=== PATIENT | male | born 1985 | race Caucasian/White ===

== ENCOUNTER 2018-05-13 19:24 | Emergency (ER) | payer OTHER ==
[~2018-05-13] VITALS: Ht 177.8 cm; Wt 127.3 kg
[2018-05-13] MEDS ORDERED: MOTR200T PO (19:32)
[2018-05-13] MEDS ORDERED: KETO10TAB PO (20:42)
[2018-05-13] MEDS ORDERED: KETOROLAC TROMETHAMINE 10 MG TAB PO ONE (20:45)
[2018-05-13 21:09] VITALS: BP 130/72
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
== END 2018-05-13 21:11 | disposition home or self-care (01) ==
LOC: M ED 19:24
DX: S83.92XA Sprain of unspecified site of left knee, initial encounter (principal); X50.1XXA Overexertion from prolonged static or awkward postures, initial encounter; Y92.149 Unspecified place in prison as the place of occurrence of the external cause; Y93.89 Activity, other specified; Y99.0 Civilian activity done for income or pay; Z72.0 Tobacco use

== ENCOUNTER 2018-06-25 19:43 | Emergency (ER) | payer OTHER ==
[~2018-06-25] VITALS: Ht 177.8 cm; Wt 124.5 kg
[~2018-06-25 19:43] MED LIST: KETO10TAB PO; MOTR200T PO
[2018-06-25] MEDS ORDERED: IBUPROFEN 600 MG TAB PO ONE (20:15)
[2018-06-25 21:10] VITALS: BP 138/75
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
== END 2018-06-25 21:14 | disposition home or self-care (01) ==
LOC: M ED 19:43
DX: S80.01XA Contusion of right knee, initial encounter (principal); S40.012A Contusion of left shoulder, initial encounter; S43.402A Unspecified sprain of left shoulder joint, initial encounter; W22.8XXA Striking against or struck by other objects, initial encounter; Y92.148 Other place in prison as the place of occurrence of the external cause; Y99.0 Civilian activity done for income or pay

== ENCOUNTER 2019-05-14 13:34 | Day surgery (SDC) | payer OTHER ==
[~2019-05-14] VITALS: Ht 177.8 cm; Wt 129.3 kg
[~2019-05-14 13:34] MED LIST changes: +LIDOCAINE 1% MDV 20ML VIAL SQ PRN; +LR 1,000 ML IV ONE; +ceFAZolin SOD 2 GM in IV 1 EA IV ONE
[2019-05-14] MEDS ORDERED: ROPIvacaine 0.5% 30 ML INJECTION (J2795 PER 1MG) ONE (13:35)
[2019-05-14] MEDS ORDERED: fentaNYL 100 MCG/2 ML INJECTION (J3010) As Ordered ONE (15:55)
[2019-05-14] MEDS ORDERED: MIDAZOLAM INJ 2 MG/2 ML VIAL (J2250) As Ordered ONE (15:55)
[2019-05-14] MEDS: MIDAZOLAM INJ 2 MG/2 ML VIAL (J2250) IV SCH ×3 (16:25→18:26)
[2019-05-14] MEDS ORDERED: ROCURONIUM BROMIDE 50 MG/5 ML VIAL As Ordered ONE (16:26)
[2019-05-14] MEDS ORDERED: PROPOFOL 200 MG/20 ML VIAL As Ordered ONE (16:27)
[2019-05-14] MEDS ORDERED: fentaNYL 250 MCG/5 ML INJECTION (J3010) As Ordered ONE (16:28)
[2019-05-14] MEDS ORDERED: dexameTHASONE 4 MG/ML 1ML VIAL (J1100) As Ordered ONE (16:29)
[2019-05-14] MEDS ORDERED: ONDANSETRON 4MG/2ML VIAL (J2405) As Ordered ONE (16:29)
[2019-05-14] MEDS ORDERED: EPINEPHrine 1MG/ML INJ 30ML MD-VIAL As Ordered ONE (16:32)
[2019-05-14] MEDS ORDERED: fentaNYL 100 MCG/2 ML INJECTION (J3010) IV SCH (17:15)
[2019-05-14] MEDS ORDERED: SUGAMMADEX SODIUM 500 MG/5 ML VIAL (BRIDION) As Ordered ONE (18:09)
[2019-05-14] MEDS ORDERED: fentaNYL 100 MCG/2 ML INJECTION (J3010) IV PRN (19:00)
[2019-05-14] MEDS ORDERED: LR 1,000 ML IV SCH (19:00)
[2019-05-14] MEDS ORDERED: ONDANSETRON 4MG/2ML VIAL (J2405) IV PRN (19:00)
[2019-05-14] MEDS ORDERED: oxyCODONE 5MG TAB PO PRN ×2 (19:00)
[2019-05-14 20:30] VITALS: BP 128/66
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
== END 2019-05-14 20:40 | disposition home or self-care (01) ==
LOC: M SDC 13:34
PROVIDERS: ATTEND Orthopaedic Surgery Hand Surgery
DX: M75.42 Impingement syndrome of left shoulder (principal)
CPT/HCPCS: 29806; 29824; 29826; 64415; J0690; J1100; J2250; J2405; J2795; J3010

== ENCOUNTER → 2020-10-19 | Outpatient (CLI) | payer OTHER ==
[~2020-10-19] MED LIST changes: -LIDOCAINE 1% MDV 20ML VIAL SQ PRN; -LR 1,000 ML IV ONE; -ceFAZolin SOD 2 GM in IV 1 EA IV ONE
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
== END ==
LOC: M RAD 17:37
PROVIDERS: ATTEND Orthopaedic Surgery
DX: M25.462 Effusion, left knee (principal); M71.22 Synovial cyst of popliteal space [Baker], left knee; S83.272A Complex tear of lateral meniscus, current injury, left knee, initial encounter; M94.262 Chondromalacia, left knee

== ENCOUNTER → 2021-11-29 | Outpatient (REF) | payer OTHER ==
[2021-12-01 21:10] LABS: TESTOSTERONE FREE (DIRECT) 10.9 pg/mL (8.7-25.1)
== END ==
LOC: M LAB REF 16:16
PROVIDERS: ATTEND Physician Assistant Medical
DX: R68.82 Decreased libido (principal)

== ENCOUNTER → 2022-04-23 | Outpatient (REF) | payer BC, OTHER ==
[2022-04-23 15:26] LABS: MONO SCRN NEGATIVE (NEGATIVE)
== END ==
LOC: M LAB REF 13:37
PROVIDERS: ATTEND Physician Assistant Medical
DX: R53.83 Other fatigue (principal); R63.4 Abnormal weight loss

== ENCOUNTER → 2022-04-23 | Outpatient (CLI) | payer BC, OTHER | LOC: M RAD 12:05 | PROVIDERS: ATTEND Physician Assistant Medical | DX: R05.9 Cough, unspecified (principal) ==

== ENCOUNTER → 2022-05-14 | Outpatient (CLI) | payer BC, OTHER ==
[~2022-05-14] MED LIST changes: +ISOVUE-370 76% 100ML VIAL As Ordered ONE
== END ==
LOC: M RAD 15:31
PROVIDERS: ATTEND Physician Assistant Medical
DX: R91.8 Other nonspecific abnormal finding of lung field (principal)

== ENCOUNTER → 2022-06-05 | Outpatient (CLI) | payer BC, OTHER ==
[~2022-06-05] MED LIST changes: -ISOVUE-370 76% 100ML VIAL As Ordered ONE
== END ==
LOC: M PLARAD 07:59
PROVIDERS: ATTEND Physician Assistant Medical
DX: R91.8 Other nonspecific abnormal finding of lung field (principal)
CPT/HCPCS: 78815; A9552

== ENCOUNTER → 2022-07-09 | Outpatient (CLI) | payer BC, OTHER ==
[~2022-07-09] MED LIST changes: +LIDOCAINE 1% MDV 20ML VIAL As Ordered ONE
[2022-07-09 14:05] VITALS: BP 167/89
== END ==
LOC: M IRPRO 13:05
PROVIDERS: ATTEND Nurse Practitioner Family
DX: R59.1 Generalized enlarged lymph nodes (principal); J98.59 Other diseases of mediastinum, not elsewhere classified

== ENCOUNTER → 2022-10-30 | Outpatient (CLI) | payer BC, OTHER ==
[~2022-10-30] MED LIST changes: +ACYC1TAB; +ALLO300T2; +CIPR500T39; +CLAR1TAB13 PO; +CYCL-707; +LEXA1TAB; +LEXA1TAB2; -LIDOCAINE 1% MDV 20ML VIAL As Ordered ONE; +METR-265; +ONDA-84; +PROC10TA5; +SENN-186 PO
[2022-10-30 14:54] LABS: INR 0.94; PROTHROMBIN TIME 12.8 SECONDS (12.5-14.5)
== END ==
LOC: M LAB 13:55
PROVIDERS: ATTEND Internal Medicine Hematology & Oncology
DX: C81.90 Hodgkin lymphoma, unspecified, unspecified site (principal)

== ENCOUNTER → 2022-11-18 | Outpatient (CLI) | payer BC, OTHER ==
[~2022-11-18] VITALS: Ht 175.3 cm; Wt 94.0 kg
[~2022-11-18] MED LIST changes: +HYDROMORPHONE HCL 0.5 MG/ 0.5 ML SYRINGE IV PRN; +LIDOCAINE 1% MDV 20ML VIAL As Ordered ONE; +LIDOCAINE 2% 100MG/5ML SDV (FOR ANES.) As Ordered ONE; +LR 1,000 ML IV SCH; +MIDAZOLAM INJ 2MG/2ML VIAL As Ordered ONE; +ONDANSETRON 4MG 2ML VIAL As Ordered ONE; +ONDANSETRON 4MG 2ML VIAL IV PRN; +ceFAZolin 2 GM/D5W 50 ML IV BAG As Ordered ONE; +fentaNYL 100 MCG/2 ML INJECTION As Ordered ONE; +fentaNYL 100 MCG/2 ML INJECTION IV PRN; +oxyCODONE 5MG TAB PO PRN; +propofoL 200 MG/20 ML VIAL As Ordered ONE
[2022-11-18 12:10] VITALS: TEMP 97.6
[2022-11-18 16:30] VITALS: BP 157/92; O2SAT 94
== END ==
LOC: M IRPRO 11:41
PROVIDERS: ATTEND Internal Medicine Hematology & Oncology
DX: C81.90 Hodgkin lymphoma, unspecified, unspecified site (principal)
CPT/HCPCS: 36561; C1769; C1788; C1894; J0690; J1100; J2250; J2405; J3010

== ENCOUNTER → 2023-02-06 | Outpatient (CLI) | payer BC, OTHER ==
[~2023-02-06] MED LIST changes: -CYCL-707; +CYCL-707 PO; +GABA-282 PO; -HYDROMORPHONE HCL 0.5 MG/ 0.5 ML SYRINGE IV PRN; -LEXA1TAB2; +LEXA1TAB2 PO; -LIDOCAINE 1% MDV 20ML VIAL As Ordered ONE; -LIDOCAINE 2% 100MG/5ML SDV (FOR ANES.) As Ordered ONE; -LR 1,000 ML IV SCH; -MIDAZOLAM INJ 2MG/2ML VIAL As Ordered ONE; +OMEP-173 PO; -ONDA-84; +ONDA-84 PO; -ONDANSETRON 4MG 2ML VIAL As Ordered ONE; -ONDANSETRON 4MG 2ML VIAL IV PRN; -PROC10TA5; +PROC10TA5 PO; -ceFAZolin 2 GM/D5W 50 ML IV BAG As Ordered ONE; -fentaNYL 100 MCG/2 ML INJECTION As Ordered ONE; -fentaNYL 100 MCG/2 ML INJECTION IV PRN; -oxyCODONE 5MG TAB PO PRN; -propofoL 200 MG/20 ML VIAL As Ordered ONE
== END ==
LOC: M RAD 13:10
PROVIDERS: ATTEND Nurse Practitioner
DX: C81.90 Hodgkin lymphoma, unspecified, unspecified site (principal); E04.1 Nontoxic single thyroid nodule

== ENCOUNTER → 2023-03-26 | Outpatient (CLI) | payer BC, OTHER ==
[~2023-03-26] MED LIST changes: +LIDOCAINE 1% MDV 20ML VIAL As Ordered ONE
[2023-03-26 10:32] VITALS: TEMP 97.4
[2023-03-26 11:15] VITALS: BP 169/101; O2SAT 98
== END ==
LOC: M IRPRO 10:15
PROVIDERS: ATTEND Otolaryngology
DX: E04.1 Nontoxic single thyroid nodule (principal)

== ENCOUNTER → 2023-08-26 | Outpatient (CLI) | payer BC ==
[~2023-08-26] MED LIST changes: -LIDOCAINE 1% MDV 20ML VIAL As Ordered ONE
== END ==
LOC: M RAD 16:14
PROVIDERS: ATTEND Otolaryngology
DX: E04.1 Nontoxic single thyroid nodule (principal)

== ENCOUNTER → 2023-10-10 | Outpatient (CLI) | payer BC ==
[~2023-10-10] MED LIST changes: +DULO1CAP5; +ISOVUE-370 76% 100ML VIAL As Ordered ONE
== END ==
LOC: M RAD 15:47
PROVIDERS: ATTEND Nurse Practitioner
DX: E07.9 Disorder of thyroid, unspecified (principal)

== ENCOUNTER → 2023-10-10 | Outpatient (CLI) | payer BC ==
[~2023-10-10] MED LIST changes: -ISOVUE-370 76% 100ML VIAL As Ordered ONE
== END ==
LOC: M RAD 09:17
PROVIDERS: ATTEND Nurse Practitioner
DX: R22.43 Localized swelling, mass and lump, lower limb, bilateral (principal)

== ENCOUNTER → 2023-10-15 | Outpatient (CLI) | payer BC | LOC: M CARPUL 08:53 | PROVIDERS: ATTEND Nurse Practitioner | DX: C81.90 Hodgkin lymphoma, unspecified, unspecified site (principal) ==

== ENCOUNTER → 2023-12-16 | Outpatient (CLI) | payer BC | LOC: M SLEEP 20:00 | PROVIDERS: ATTEND Internal Medicine Pulmonary Disease | DX: G47.33 Obstructive sleep apnea (adult) (pediatric) (principal) ==

== ENCOUNTER → 2023-12-22 | Outpatient (CLI) | payer BC ==
[2023-12-22 10:34] LABS: ABG BASE EXCESS 5.4 (-2.0-2.0); ABG HCO3 30.7 MMOL/L (22.0-26.0); ABG O2 SATURATION 95.4 % (95.0-99.0); ABG PARTIAL PRESSURE CO2 46.6 mmHg (35.0-45.0); ABG STANDARD HCO3 29.2 MMOL/L. (22.0-26.0); ABG TOTAL CO2 32.2 MMOL/L (22.0-29.0); ABG pH (ARTERIAL) 7.437 UNITS (7.350-7.450)
== END ==
LOC: M RADPRO 10:04
PROVIDERS: ATTEND Internal Medicine Pulmonary Disease
DX: R06.00 Dyspnea, unspecified (principal); J98.6 Disorders of diaphragm; G47.33 Obstructive sleep apnea (adult) (pediatric)

== ENCOUNTER → 2024-01-13 | Outpatient (CLI) | payer BC, OTHER ==
[~2024-01-13] MED LIST changes: +TORS10TA3; +TRAZ-252; +ZOLP5TAB
== END ==
LOC: M SLEEP 20:00
PROVIDERS: ATTEND Internal Medicine Pulmonary Disease
DX: G47.33 Obstructive sleep apnea (adult) (pediatric) (principal)